=== PATIENT | female | born 1990 | race Caucasian/White ===

== ENCOUNTER 2018-05-04 21:09 | Inpatient (IN) | payer OTHER ==
[~2018-05-04] VITALS: Ht 162.6 cm; Wt 65.8 kg
[2018-05-04] MEDS ORDERED: PRENATAL TABLE1 EAC1 PO (21:45)
== END 2018-05-06 15:39 | disposition home or self-care (01) | DRG 833 ==
LOC: OBS/DEL 21:09 → LDR 05-05 10:11 → OBS/DEL 05-05 10:11 → LDR 05-06 15:39
PROC: 4A1HXCZ Monitoring of Products of Conception, Cardiac Rate, External Approach (ICD-10-PCS; principal; 2018-05-05)
PROC: BY4CZZZ Ultrasonography of Second Trimester, Single Fetus (ICD-10-PCS; 2018-05-05)
DX: O26.892 Other specified pregnancy related conditions, second trimester (principal); R10.32 Left lower quadrant pain; O43.892 Other placental disorders, second trimester; Z34.82 Encounter for supervision of other normal pregnancy, second trimester

== ENCOUNTER 2018-07-12 06:07 | Outpatient (CLI) | payer OTHER ==
[~2018-07-12 06:07] MED LIST: PRENATAL TABLE1 EAC1 PO
== END 2018-07-12 10:05 | disposition home or self-care (01) ==
LOC: OBS/DEL 06:07
DX: O26.893 Other specified pregnancy related conditions, third trimester (principal); R10.2 Pelvic and perineal pain; Z34.83 Encounter for supervision of other normal pregnancy, third trimester

== ENCOUNTER 2018-08-12 11:43 | Inpatient (IN) | payer OTHER ==
[~2018-08-12] VITALS: Ht 167.6 cm; Wt 73.9 kg
[2018-08-15] MEDS ORDERED: IBUPROFEN800 MG PO (15:53)
[2018-08-15] MEDS ORDERED: DOCUSATE SODIU100 MG PO (15:53)
[2018-08-15] MEDS ORDERED: GAS RELIEF125 MG PO (15:54)
== END 2018-08-15 16:57 | disposition home or self-care (01) | DRG 785 ==
LOC: SURG-SUITE 11:43 → LDR 11:43 → O/R 11:43 → OB/GYN 16:19 → SURG-SUITE 16:22
PROVIDERS: ADMIT Obstetrics & Gynecology
PROC: 0UL70ZZ Occlusion of Bilateral Fallopian Tubes, Open Approach (ICD-10-PCS; 2018-08-12)
PROC: 4A1HXCZ Monitoring of Products of Conception, Cardiac Rate, External Approach (ICD-10-PCS; 2018-08-12)
PROC: 10D00Z1 Extraction of Products of Conception, Low, Open Approach (ICD-10-PCS; principal; 2018-08-12 13:30)
DX: O99.89 Other specified diseases and conditions complicating pregnancy, childbirth and the puerperium (principal); R87.613 High grade squamous intraepithelial lesion on cytologic smear of cervix (HGSIL); Z3A.37 37 weeks gestation of pregnancy; Z37.0 Single live birth; Z30.2 Encounter for sterilization